=== PATIENT | female | born 2000 | race Asian ===

== ENCOUNTER 2024-02-21 00:41 | Emergency (ER) | payer SELFPAY ==
[~2024-02-21] VITALS: Ht 167.6 cm; Wt 50.0 kg
[2024-02-21 00:44] VITALS: O2SAT 99
[2024-02-21] MEDS ORDERED: ACETAMINOPHEN 325MG TABLET PO PRN (01:00)
[2024-02-21] MEDS: SODIUM CHLORIDE 0.9% 1,000 ML IV ONE (01:10)
[2024-02-21 01:24] LABS: CHLORIDE 107 mEq/L (98-107); POTASSIUM 3.4 mEq/L (3.5-5.1); SODIUM 138 mEq/L (136-145)
[2024-02-21 01:25] LABS: CALCIUM 8.7 mg/dL (8.7-10.4); CARBON DIOXIDE 23 mEq/L (21-32)
[2024-02-21 01:26] LABS: BASOPHILS % 0.1 % (0.0-2.0); HEMATOCRIT. 31.3 % (36.0-48.0); HEMOGLOBIN. 10.3 g/dL (12.0-16.0); LYMPHOCYTES % 7.2 % (20.0-50.0); MEAN CORPUSCULAR HEMOGLOBIN 30.6 pg (28.0-32.0); MEAN CORPUSCULAR HGB CONC 32.8 g/dL (31.0-37.0); MEAN CORPUSCULAR VOLUME 93.1 fL (81.0-99.0); MEAN PLATELET VOLUME 7.6 fl (7.4-10.4); MONOCYTES % 4.5 % (2.0-8.0); NEUTROPHILS % 88.2 % (40.0-76.0); PLATELET 273 x1000/uL (130-400); RED BLOOD CELL COUNT 3.36 mill/uL (4.2-5.4); RED CELL DISTRIBUTION WIDTH 13.4 % (11.6-14.6); WHITE BLOOD COUNT 18.2 x1000/uL (4.5-11.0)
[2024-02-21 01:30] LABS: CREATININE 0.9 mg/dL (0.6-1.0); GLUCOSE 120 mg/dL (70-105); UREA NITROGEN BLOOD 12 mg/dL (9-23)
[2024-02-21 01:38] LABS: HCG SCREEN NEGATIVE
[2024-02-21 04:24] LABS: HEMATOCRIT 29.4 % (36.0-48.0); HEMOGLOBIN 9.7 g/dL (12.0-16.0)
[2024-02-21] MEDS ORDERED: TRANEXAMIC ACID 1,000MG/10ML IV ONE (05:15)
[2024-02-21] MEDS: TRANEXAMIC ACID 1,000 MG in SODIUM CHLORIDE 0.9% 100 ML IV NR (05:51)
[2024-02-21] MEDS: MISOPROSTOL 200MCG TABLET PO NR (20:15)
[2024-02-21 20:19] VITALS: BP 127/69; PULSE 100; RESP 17; TEMP 36.61404; O2SAT 99
== END 2024-02-21 20:30 | disposition home or self-care (01) ==
LOC: ER 00:41 → EDBEDREQ 05:47 → ER 20:30
DX: S31.41XA Laceration without foreign body of vagina and vulva, initial encounter (principal); D64.9 Anemia, unspecified; R55 Syncope and collapse; X58.XXXA Exposure to other specified factors, initial encounter; Y93.89 Activity, other specified; Y92.89 Other specified places as the place of occurrence of the external cause; Y99.8 Other external cause status
CPT/HCPCS: 80048; 84703; 85014; 85018; 85025; 86850; 86900; 86901; 86920; 36415; 76856; 96361; 96365; 99285; J7050; J7030; Z7610; P9016